=== PATIENT | male | born 2000 | race Caucasian/White ===

== ENCOUNTER 2024-07-04 18:10 | Emergency (ER) | payer MEDICAID ==
[~2024-07-04] VITALS: Ht 172.7 cm; Wt 77.3 kg
[2024-07-04 18:15] VITALS: BP 138/84; PULSE 81; RESP 15; TEMP 98; O2SAT 98
[2024-07-04] MEDS: bacitracin 15gm ointment TP ONE (20:54)
== END 2024-07-04 20:57 | disposition home or self-care (01) ==
LOC: ER 18:11
DX: L03.011 Cellulitis of right finger (principal)
CPT/HCPCS: 10060; 73130; 99283